=== PATIENT | male | born 1950 | race Caucasian/White ===

== ENCOUNTER 2020-03-20 21:40 | Inpatient (IN) | payer MEDICARE, BC ==
[~2020-03-20] VITALS: Ht 160 cm; Wt 66.7 kg
--- NOTE | 2020-03-20 22:30 | NUR ---
PT RESTING ON GURNEY, MONITORS IN PLACE, SIDERAIL SUP X2, DONOHUE CATHETER INTACT DRAINING WITHOUT DIFFICULTY, CALL LIGHT WITHIN REACH. DISCUSSED EMERGENGY CONTACT WITH PT, PT GAVE PERMISSION TO UPDATE HIS SON JORGE WITH ANY INFORMATION AND SON TO BE EMERGENCY CONTACT [phone]. PT STATED THAT HE DOES NOT WANT HIS EX BIANKA TO BE GIVEN ANY INFORMATION OR UPDATES RELATED TO HIM
--- NOTE | 2020-03-20 23:16 | NUR ---
ERP UPDATED TROPONIN 5.3, PT OK FOR ADMIT TRANSFER
[2020-03-20 23:30] VITALS: BP 123/80
[2020-03-20] MEDS ORDERED: NITROGLYCERIN 0.4 MG BOTTLE (25 TABS) SL PRN (23:30)
[2020-03-20] MEDS ORDERED: BISACODYL 10 MG SUPP PR PRN (23:30)
[2020-03-20] MEDS ORDERED: hydrALAzine 20 MG/ML, 1ML IVPush PRN (23:30)
[2020-03-20] MEDS ORDERED: ACETAMINOPHEN 325 MG TABLET PO PRN (23:30)
[2020-03-20] MEDS ORDERED: POLYETHYLENE GLYCOL 17 GM PACKET PO PRN (23:30)
[2020-03-20] MEDS ORDERED: SODIUM CHLORIDE 0.45% 1,000 ML IV SCH (23:30)
[2020-03-20] MEDS ORDERED: morphine SULFATE 10 MG/ML, 1ML IVPush PRN (23:30)
[2020-03-20] MEDS ORDERED: ONDANSETRON 2MG/ML, 2ML IVPush PRN (23:30)
[2020-03-20] MEDS ORDERED: HEPARIN 5,000 UNITS/ML, 1ML IV PRN (23:45)
[2020-03-20] MEDS ORDERED: HEPARIN 25,000 UNITS/250ML PMX 250 ML IV PRN (23:45)
[2020-03-20] MEDS ORDERED: HEPARIN 5,000 UNITS/ML, 1ML IV ONE (23:45)
[2020-03-21 02:44] VITALS: BP 113/73
[2020-03-21] MEDS: ASPIRIN 81 MG TABLET EC PO SCH (05:29)
[2020-03-21] MEDS ORDERED: ASPIRIN 325 MG TABLET EC PO SCH (06:00)
[2020-03-21 06:45] LABS: ALBUMIN 3.2 g/dL (3.4-5.0); ANION GAP 10 mmol/L (5-15); CALCIUM 8.5 mg/dL (8.5-10.1); CHLORIDE 117 mmol/L (98-107)
[2020-03-21 06:49] LABS: ALANINE AMINOTRANSFERASE 95 U/L (12-78); ALKALINE PHOSPHATASE 65 U/L (45-117); BILIRUBIN,TOTAL 1.7 mg/dL (0.2-1.0); CREATININE 1.44 mg/dL (0.7-1.3); TOTAL PROTEIN 6.5 g/dL (6.4-8.2)
[2020-03-21 07:02] LABS: CREATINE KINASE, TOTAL 1423 U/L (39-308)
[2020-03-21 07:22] LABS: BASOPHILS # (AUTO) 0.02 x10^3/uL (0-0.1); BASOPHILS % (AUTO) 0 % (0-1); EOSINOPHILS % (AUTO) 0 % (1-7); LYMPHOCYTES # (AUTO) 0.65 x10^3/uL (1-3.4); LYMPHOCYTES % (AUTO) 9 % (22-44); MD SCAN; MEAN CORPUSCULAR HEMOGLOBIN 34.3 pg (27.5-34.5); MEAN CORPUSCULAR HGB CONC 33.5 g/dL (33.2-36.2); MEAN CORPUSCULAR VOLUME 102.6 fL (81-97); MEAN PLATELET VOLUME 8.6 fL (7.4-10.4); MONOCYTES # (AUTO) 0.33 x10^3/uL (0.2-0.8); MONOCYTES % (AUTO) 5 % (2-9); NEUTROPHILS # (AUTO) 6.03 x10^3/uL (1.8-6.8); NEUTROPHILS % (AUTO) 86 % (42-75); PLATELET COUNT 148 x10^3/uL (130-400); RED BLOOD COUNT 3.18 x10^6/uL (4.38-5.82)
[2020-03-21] MEDS ORDERED: PANTOPRAZOLE 40 MG IV IVPush SCH (07:30)
[2020-03-21 08:33] VITALS: BP 123/76
[2020-03-21] MEDS: SENNA/DOCUSATE TABLET PO SCH (08:34)
[2020-03-21] MEDS ORDERED: D5%-0.45NACL+KCL 20MEQ 1,000 ML IV SCH (09:00)
[2020-03-21] MEDS ORDERED: CHLORDIAZEPOXIDE 25 MG CAPSULE PO PRN (11:30)
[2020-03-21] MEDS ORDERED: LORazepam 1MG TABLET PO PRN ×3 (11:30)
[2020-03-21] MEDS ORDERED: LORazepam 2 MG/ML, 1ML IV PRN ×3 (11:30)
[2020-03-21] MEDS ORDERED: LORazepam 0.5MG TABLET PO PRN (11:30)
[2020-03-21] MEDS ORDERED: THIAMINE 100 MG in SODIUM CHLORIDE 0.9% 50 ML IV SCH (12:00)
[2020-03-21] MEDS: D5%-0.45NACL+KCL 20MEQ 1,000 ML IV SCH ×2 (12:13→23:22)
[2020-03-21 12:35] LABS: MICROSCOPIC AUTO
[2020-03-21 12:36] LABS: CULTURE INDICATED? YES
[2020-03-21 12:47] LABS: AMPHETAMINE SCREEN, URINE Negative (Negative); BARBITURATE SCREEN, URINE Negative (Negative); BENZODIAZEPINE SCREEN, URINE Negative (Negative); CANNABINOID SCREEN, URINE Negative (Negative); COCAINE SCREEN, URINE Negative (Negative); METHADONE SCREEN, URINE Negative (Negative); OPIATE SCREEN, URINE Negative (Negative)
[2020-03-21] MEDS ORDERED: CEFTRIAXONE PMX 1GM/50ML 50 ML IV SCH (13:00)
[2020-03-21 16:30] VITALS: BP 117/71
[2020-03-21] MEDS: LORazepam 2 MG/ML, 1ML IV PRN ×3 (18:41→23:30)
[2020-03-21 19:30] VITALS: BP 115/84
[2020-03-21] MEDS: ATORVASTATIN 40 MG TABLET PO SCH (21:07)
[2020-03-22 00:33] LABS: CLOSTRIDIUM DIFFICILE ANTIGEN NEGATIVE; CLOSTRIDIUM DIFFICILE TOXIN NEGATIVE (Negative)
[2020-03-22 01:41] VITALS: BP 115/75
[2020-03-22] MEDS: LORazepam 2 MG/ML, 1ML IV PRN ×2 (02:17→12:55)
[2020-03-22] MEDS ORDERED: PANTOPRAZOLE 40MG TABLET ONE (03:21)
[2020-03-22] MEDS: ASPIRIN 81 MG TABLET EC PO SCH (03:22)
[2020-03-22] MEDS: D5%-0.45NACL+KCL 20MEQ 1,000 ML IV SCH (04:51)
[2020-03-22 05:34] LABS: BASOPHILS # (AUTO) 0.03 x10^3/uL (0-0.1); BASOPHILS % (AUTO) 0 % (0-1); EOSINOPHILS # (AUTO) 0.05 x10^3/uL (0-0.4); EOSINOPHILS % (AUTO) 1 % (1-7); LYMPHOCYTES # (AUTO) 0.74 x10^3/uL (1-3.4); LYMPHOCYTES % (AUTO) 12 % (22-44); MD NO; MEAN CORPUSCULAR HEMOGLOBIN 34.5 pg (27.5-34.5); MEAN CORPUSCULAR HGB CONC 33.5 g/dL (33.2-36.2); MEAN PLATELET VOLUME 8.8 fL (7.4-10.4); MONOCYTES # (AUTO) 0.38 x10^3/uL (0.2-0.8); MONOCYTES % (AUTO) 6 % (2-9); NEUTROPHILS % (AUTO) 80 % (42-75); PLATELET COUNT 120 x10^3/uL (130-400); RED BLOOD COUNT 3.25 x10^6/uL (4.38-5.82)
[2020-03-22 05:42] LABS: ALANINE AMINOTRANSFERASE 73 U/L (12-78); ALBUMIN 2.7 g/dL (3.4-5.0); ANION GAP 8 mmol/L (5-15); CALCIUM 7.8 mg/dL (8.5-10.1); CHLORIDE 119 mmol/L (98-107); CREATININE 0.99 mg/dL (0.7-1.3)
[2020-03-22 05:46] LABS: ALKALINE PHOSPHATASE 60 U/L (45-117); BILIRUBIN,TOTAL 1.6 mg/dL (0.2-1.0); TOTAL PROTEIN 5.9 g/dL (6.4-8.2)
[2020-03-22] MEDS ORDERED: PANTOPRAZOLE 40MG TABLET PO SCH (06:00)
[2020-03-22 06:03] LABS: CREATINE KINASE, TOTAL 1237 U/L (39-308)
[2020-03-22 07:10] VITALS: BP 117/76
[2020-03-22] MEDS: SENNA/DOCUSATE TABLET PO SCH (07:25)
[2020-03-22] MEDS ORDERED: CEFDINIR 300 MG CAPSULE PO SCH (09:00)
[2020-03-22] MEDS ORDERED: D5%-0.45NACL+KCL 20MEQ 1,000 ML IV SCH (09:00)
[2020-03-22] MEDS: HEPARIN 5,000 UNITS/ML, 1ML SQ SCH ×2 (09:47→17:33)
[2020-03-22] MEDS: LACTATED RINGERS 1,000 ML IV SCH ×2 (09:47→15:40)
[2020-03-22] MEDS: CHLORDIAZEPOXIDE 25 MG CAPSULE PO SCH ×3 (09:47→21:00)
[2020-03-22] MEDS ORDERED: THIAMINE 200 MG in SODIUM CHLORIDE 0.9% 50 ML IV SCH (12:00)
[2020-03-22 13:20] VITALS: BP 125/82
[2020-03-22 19:28] VITALS: BP 139/84
[2020-03-22] MEDS: ATORVASTATIN 40 MG TABLET PO SCH (21:00)
[2020-03-22] MEDS: CEFTRIAXONE PMX 1GM/50ML 50 ML IV SCH (21:14)
[2020-03-23] MEDS: LACTATED RINGERS 1,000 ML IV SCH ×2 (01:17→08:46)
[2020-03-23] MEDS: HEPARIN 5,000 UNITS/ML, 1ML SQ SCH ×3 (01:18→18:43)
[2020-03-23 01:39] VITALS: BP 136/72
[2020-03-23 05:46] LABS: BASOPHILS # (AUTO) 0.03 x10^3/uL (0-0.1); BASOPHILS % (AUTO) 1 % (0-1); CHLORIDE 117 mmol/L (98-107); EOSINOPHILS # (AUTO) 0.11 x10^3/uL (0-0.4); EOSINOPHILS % (AUTO) 3 % (1-7); LYMPHOCYTES # (AUTO) 0.67 x10^3/uL (1-3.4); LYMPHOCYTES % (AUTO) 15 % (22-44); MD NO; MEAN CORPUSCULAR HEMOGLOBIN 35.4 pg (27.5-34.5); MEAN CORPUSCULAR HGB CONC 34.4 g/dL (33.2-36.2); MEAN CORPUSCULAR VOLUME 102.9 fL (81-97); MEAN PLATELET VOLUME 8.7 fL (7.4-10.4); MONOCYTES # (AUTO) 0.36 x10^3/uL (0.2-0.8); MONOCYTES % (AUTO) 8 % (2-9); NEUTROPHILS # (AUTO) 3.35 x10^3/uL (1.8-6.8); NEUTROPHILS % (AUTO) 74 % (42-75); PLATELET COUNT 113 x10^3/uL (130-400); RED BLOOD COUNT 2.86 x10^6/uL (4.38-5.82); RED CELL DISTRIBUTION WIDTH 14.5 % (9.4-14.8)
[2020-03-23 05:55] LABS: ALANINE AMINOTRANSFERASE 64 U/L (12-78); ALBUMIN 2.6 g/dL (3.4-5.0); ALKALINE PHOSPHATASE 63 U/L (45-117); ANION GAP 8 mmol/L (5-15); BILIRUBIN,TOTAL 1.1 mg/dL (0.2-1.0); CALCIUM 8.1 mg/dL (8.5-10.1); CREATINE KINASE, TOTAL 603 U/L (39-308); CREATININE 0.76 mg/dL (0.7-1.3); TOTAL PROTEIN 5.8 g/dL (6.4-8.2)
[2020-03-23] MEDS: ASPIRIN 81 MG TABLET EC PO SCH (06:00)
[2020-03-23] MEDS: PANTOPRAZOLE 40 MG IV IV SCH (06:05)
[2020-03-23] MEDS ORDERED: MAGNESIUM SULFATE PMX 4GM/100M 100 ML IVPB ONE (06:30)
[2020-03-23 08:30] VITALS: BP 154/94
[2020-03-23] MEDS: MULTIVITAMINS/MINERALS TABLET PO SCH (09:00)
[2020-03-23] MEDS: SENNA/DOCUSATE TABLET PO SCH (09:00)
[2020-03-23] MEDS: FOLIC ACID 1 MG TABLET PO SCH (09:00)
[2020-03-23] MEDS ORDERED: POTASSIUM CHLORIDE 10 MEQ in D5%-0.45% NACL 1,000 ML IV SCH (09:15)
[2020-03-23] MEDS: POTASSIUM CHLORIDE 10 MEQ in D5%-0.45% NACL 1,000 ML IV SCH (10:06)
[2020-03-23] MEDS: CHLORDIAZEPOXIDE 25 MG CAPSULE PO SCH (12:43)
[2020-03-23] MEDS: METOPROLOL TARTRATE 25 MG TAB PO SCH ×2 (12:52→21:17)
[2020-03-23] MEDS: THIAMINE 100 MG in SODIUM CHLORIDE 0.9% 50 ML IV SCH (13:20)
[2020-03-23 14:10] VITALS: BP 146/82
[2020-03-23 20:15] VITALS: BP 144/89
[2020-03-23] MEDS: ATORVASTATIN 40 MG TABLET PO SCH (21:17)
[2020-03-23] MEDS: CEFTRIAXONE PMX 1GM/50ML 50 ML IV SCH (21:55)
[2020-03-24 01:31] VITALS: BP 144/89
[2020-03-24] MEDS: HEPARIN 5,000 UNITS/ML, 1ML SQ SCH ×3 (01:59→17:32)
[2020-03-24 05:49] LABS: BASOPHILS # (AUTO) 0.01 x10^3/uL (0-0.1); BASOPHILS % (AUTO) 0 % (0-1); EOSINOPHILS # (AUTO) 0.15 x10^3/uL (0-0.4); EOSINOPHILS % (AUTO) 3 % (1-7); LYMPHOCYTES # (AUTO) 0.75 x10^3/uL (1-3.4); LYMPHOCYTES % (AUTO) 15 % (22-44); MD NO; MEAN CORPUSCULAR HEMOGLOBIN 34.7 pg (27.5-34.5); MEAN CORPUSCULAR HGB CONC 33.7 g/dL (33.2-36.2); MEAN PLATELET VOLUME 9.1 fL (7.4-10.4); MONOCYTES # (AUTO) 0.49 x10^3/uL (0.2-0.8); MONOCYTES % (AUTO) 10 % (2-9); NEUTROPHILS # (AUTO) 3.61 x10^3/uL (1.8-6.8); NEUTROPHILS % (AUTO) 72 % (42-75); PLATELET COUNT 120 x10^3/uL (130-400); RED BLOOD COUNT 2.85 x10^6/uL (4.38-5.82); RED CELL DISTRIBUTION WIDTH 14.7 % (9.4-14.8)
[2020-03-24 05:53] LABS: ALBUMIN 2.4 g/dL (3.4-5.0); ANION GAP 9 mmol/L (5-15); CALCIUM 8.5 mg/dL (8.5-10.1); CHLORIDE 114 mmol/L (98-107)
[2020-03-24] MEDS: ASPIRIN 81 MG TABLET EC PO SCH (05:56)
[2020-03-24] MEDS: PANTOPRAZOLE 40 MG IV IV SCH (05:56)
[2020-03-24 05:57] LABS: ALANINE AMINOTRANSFERASE 55 U/L (12-78); ALKALINE PHOSPHATASE 65 U/L (45-117); BILIRUBIN,TOTAL 0.9 mg/dL (0.2-1.0); CREATININE 0.82 mg/dL (0.7-1.3); TOTAL PROTEIN 5.8 g/dL (6.4-8.2)
[2020-03-24] MEDS: METOPROLOL TARTRATE 25 MG TAB PO SCH ×2 (06:10→17:29)
[2020-03-24] MEDS ORDERED: MAGNESIUM SULFATE PMX 2GM/50ML 50 ML IV ONE (07:00)
[2020-03-24] MEDS: SENNA/DOCUSATE TABLET PO SCH (07:20)
[2020-03-24 07:50] VITALS: BP 156/94
[2020-03-24] MEDS: MULTIVITAMINS/MINERALS TABLET PO SCH (09:00)
[2020-03-24] MEDS: CEFDINIR 300 MG CAPSULE PO SCH ×2 (09:00→20:28)
[2020-03-24] MEDS: FOLIC ACID 1 MG TABLET PO SCH (09:00)
[2020-03-24] MEDS ORDERED: POTASSIUM CHLORIDE 20 MEQ TAB.ER.PRT PO SCH (09:00)
[2020-03-24] MEDS ORDERED: POTASSIUM CHLORIDE 20 MEQ in SODIUM CHLORIDE 0.9% 250 ML IV ONE (10:15)
[2020-03-24 13:40] VITALS: BP 131/82
[2020-03-24] MEDS: THIAMINE 100 MG in SODIUM CHLORIDE 0.9% 50 ML IV SCH (15:14)
[2020-03-24] MEDS ORDERED: PHARMACY INSTRUCTION MC PRN (15:30)
[2020-03-24] MEDS ORDERED: INSTRUCTION SEE COMMENTS XX PRN (15:30)
[2020-03-24] MEDS: IBUPROFEN 600 MG TABLET PO PRN (17:29)
[2020-03-24] MEDS: QUETIAPINE 25MG TABLET PO PRN (17:47)
[2020-03-24] MEDS: POTASSIUM CHLORIDE 10 MEQ in D5%-0.45% NACL 1,000 ML IV SCH (20:27)
[2020-03-24] MEDS: ATORVASTATIN 40 MG TABLET PO SCH (20:27)
[2020-03-24] MEDS: MELATONIN 3 MG TABLET PO SCH (20:28)
[2020-03-24 21:10] VITALS: BP 141/82
[2020-03-25] MEDS: HEPARIN 5,000 UNITS/ML, 1ML SQ SCH ×3 (00:43→18:19)
[2020-03-25] MEDS ORDERED: OMEP40CA42 PO (01:06)
[2020-03-25] MEDS ORDERED: LOSA50TA14 PO (01:06)
[2020-03-25] MEDS: IBUPROFEN 600 MG TABLET PO PRN ×2 (02:31→15:16)
[2020-03-25] MEDS: POTASSIUM CHLORIDE 10 MEQ in D5%-0.45% NACL 1,000 ML IV SCH ×2 (04:42→15:19)
[2020-03-25 05:13] VITALS: BP 132/84
[2020-03-25] MEDS: ASPIRIN 81 MG TABLET EC PO SCH (05:14)
[2020-03-25] MEDS: METOPROLOL TARTRATE 25 MG TAB PO SCH ×2 (05:14→18:19)
[2020-03-25 05:28] LABS: BASOPHILS % (AUTO) 0 % (0-1); EOSINOPHILS # (AUTO) 0.27 x10^3/uL (0-0.4); EOSINOPHILS % (AUTO) 6 % (1-7); LYMPHOCYTES # (AUTO) 0.82 x10^3/uL (1-3.4); LYMPHOCYTES % (AUTO) 18 % (22-44); MD NO; MEAN CORPUSCULAR HEMOGLOBIN 35.2 pg (27.5-34.5); MEAN CORPUSCULAR HGB CONC 34.2 g/dL (33.2-36.2); MEAN PLATELET VOLUME 9.2 fL (7.4-10.4); MONOCYTES # (AUTO) 0.52 x10^3/uL (0.2-0.8); MONOCYTES % (AUTO) 12 % (2-9); NEUTROPHILS # (AUTO) 2.92 x10^3/uL (1.8-6.8); NEUTROPHILS % (AUTO) 64 % (42-75); PLATELET COUNT 138 x10^3/uL (130-400); RED BLOOD COUNT 2.58 x10^6/uL (4.38-5.82); RED CELL DISTRIBUTION WIDTH 15.1 % (9.4-14.8)
[2020-03-25 05:30] LABS: ALANINE AMINOTRANSFERASE 44 U/L (12-78); ALBUMIN 2.2 g/dL (3.4-5.0); ANION GAP 5 mmol/L (5-15); CALCIUM 7.9 mg/dL (8.5-10.1); CHLORIDE 118 mmol/L (98-107)
[2020-03-25 05:33] LABS: ALKALINE PHOSPHATASE 63 U/L (45-117); BILIRUBIN,TOTAL 0.6 mg/dL (0.2-1.0); CREATININE 0.79 mg/dL (0.7-1.3); TOTAL PROTEIN 5.2 g/dL (6.4-8.2)
[2020-03-25 07:49] VITALS: BP 145/89
[2020-03-25] MEDS: FOLIC ACID 1 MG TABLET PO SCH (09:20)
[2020-03-25] MEDS: MULTIVITAMINS/MINERALS TABLET PO SCH (09:22)
[2020-03-25] MEDS: CEFDINIR 300 MG CAPSULE PO SCH ×2 (09:25→20:58)
[2020-03-25] MEDS: SENNA/DOCUSATE TABLET PO SCH (09:25)
[2020-03-25] MEDS ORDERED: POTASSIUM CHLORIDE 40 MEQ in SODIUM CHLORIDE 0.9% 500 ML IV ONE (09:30)
[2020-03-25] MEDS ORDERED: MAGNESIUM SULFATE PMX 2GM/50ML 50 ML IV ONE (11:00)
[2020-03-25] MEDS ORDERED: OXYcodone/APAP 5/325MG TABLET PO PRN (11:00)
[2020-03-25] MEDS: CYCLOBENZAPRINE 10 MG TABLET PO PRN (11:31)
[2020-03-25 13:30] VITALS: BP 145/85
[2020-03-25] MEDS: THIAMINE 100 MG in SODIUM CHLORIDE 0.9% 50 ML IV SCH (13:56)
[2020-03-25 18:17] VITALS: BP 128/84
[2020-03-25 19:42] VITALS: BP 126/83
[2020-03-25] MEDS: ATORVASTATIN 40 MG TABLET PO SCH (20:58)
[2020-03-25] MEDS: MELATONIN 3 MG TABLET PO SCH (20:58)
[2020-03-26] MEDS: POTASSIUM CHLORIDE 10 MEQ in D5%-0.45% NACL 1,000 ML IV SCH (01:48)
[2020-03-26] MEDS: HEPARIN 5,000 UNITS/ML, 1ML SQ SCH ×3 (01:49→18:25)
[2020-03-26 05:08] VITALS: BP 144/88
[2020-03-26] MEDS: METOPROLOL TARTRATE 25 MG TAB PO SCH ×2 (05:10→18:25)
[2020-03-26] MEDS: ASPIRIN 81 MG TABLET EC PO SCH (05:10)
[2020-03-26] MEDS: CYCLOBENZAPRINE 10 MG TABLET PO PRN (05:11)
[2020-03-26 05:25] LABS: ALBUMIN 2.4 g/dL (3.4-5.0); CHLORIDE 116 mmol/L (98-107)
[2020-03-26 05:35] LABS: ALANINE AMINOTRANSFERASE 42 U/L (12-78); ALKALINE PHOSPHATASE 69 U/L (45-117); ANION GAP 5 mmol/L (5-15); BILIRUBIN,TOTAL 0.6 mg/dL (0.2-1.0); CALCIUM 8.5 mg/dL (8.5-10.1); CHOL/HDL RATIO 1.9; CHOLESTEROL, TOTAL 92 mg/dL (140-239); CREATININE 0.83 mg/dL (0.7-1.3); HDL CHOL % 52 % (26-37); HDL CHOLESTEROL (DIRECT) 48 mg/dL (40-60); LDL CHOLESTEROL,CALCULATED 31 mg/dL (54-169); LDL/HDL RATIO 0.6 (0.5-3.0); TOTAL PROTEIN 5.8 g/dL (6.4-8.2); TRIGLYCERIDES 64 mg/dL (50-200); TROPONIN I 0.098 ng/mL (0.000-0.045); VLDL CHOLESTEROL 13 mg/dL (0-25)
[2020-03-26 05:42] LABS: BASOPHILS # (AUTO) 0.03 x10^3/uL (0-0.1); BASOPHILS % (AUTO) 1 % (0-1); EOSINOPHILS # (AUTO) 0.31 x10^3/uL (0-0.4); EOSINOPHILS % (AUTO) 6 % (1-7); LYMPHOCYTES # (AUTO) 0.86 x10^3/uL (1-3.4); LYMPHOCYTES % (AUTO) 16 % (22-44); MD NO; MEAN CORPUSCULAR HEMOGLOBIN 34.8 pg (27.5-34.5); MEAN CORPUSCULAR HGB CONC 33.2 g/dL (33.2-36.2); MEAN CORPUSCULAR VOLUME 104.8 fL (81-97); MEAN PLATELET VOLUME 9.4 fL (7.4-10.4); MONOCYTES # (AUTO) 0.69 x10^3/uL (0.2-0.8); MONOCYTES % (AUTO) 13 % (2-9); NEUTROPHILS % (AUTO) 66 % (42-75); PLATELET COUNT 183 x10^3/uL (130-400); RED BLOOD COUNT 2.66 x10^6/uL (4.38-5.82); RED CELL DISTRIBUTION WIDTH 15.2 % (9.4-14.8)
[2020-03-26 07:29] VITALS: BP 131/75
[2020-03-26] MEDS ORDERED: POTASSIUM CHLORIDE 10 MEQ in D5%-0.45% NACL 1,000 ML IV SCH ×2 (09:15→14:00)
[2020-03-26] MEDS: FOLIC ACID 1 MG TABLET PO SCH (09:33)
[2020-03-26] MEDS: THIAMINE 100MG TABLET PO SCH (09:35)
[2020-03-26] MEDS: CEFDINIR 300 MG CAPSULE PO SCH ×2 (09:36→21:10)
[2020-03-26] MEDS: MULTIVITAMINS/MINERALS TABLET PO SCH (09:37)
[2020-03-26] MEDS: SENNA/DOCUSATE TABLET PO SCH (09:37)
[2020-03-26] MEDS: D5%-0.45% NACL+KCL 10MEQ 1,000 ML IV SCH (11:44)
[2020-03-26 12:23] VITALS: BP 132/73
--- NOTE | 2020-03-26 13:18 | NUR ---
Rec d/c to previous living situation. Addendum: 03/26/20 at 1319 by Neda PAUL Amended: Links added.
[2020-03-26] MEDS: IBUPROFEN 600 MG TABLET PO PRN (15:43)
[2020-03-26 18:23] VITALS: BP 136/79
[2020-03-26] MEDS: MELATONIN 3 MG TABLET PO SCH (21:10)
[2020-03-26] MEDS: ATORVASTATIN 40 MG TABLET PO SCH (21:10)
[2020-03-26 21:19] VITALS: BP 142/80
[2020-03-27] MEDS: QUETIAPINE 25MG TABLET PO PRN (00:40)
[2020-03-27] MEDS: HEPARIN 5,000 UNITS/ML, 1ML SQ SCH ×3 (02:00→17:33)
[2020-03-27] MEDS ORDERED: HALOPERIDOL 5 MG/ML IV PRN (03:30)
[2020-03-27 06:07] VITALS: BP 115/71
[2020-03-27] MEDS: ASPIRIN 81 MG TABLET EC PO SCH (06:09)
[2020-03-27] MEDS: METOPROLOL TARTRATE 25 MG TAB PO SCH ×2 (06:09→17:34)
[2020-03-27 07:04] VITALS: BP 147/87
[2020-03-27] MEDS ORDERED: REGADENOSON 0.4 MG/5 ML SYRINGE ONE (08:42)
[2020-03-27] MEDS: SENNA/DOCUSATE TABLET PO SCH (09:00)
[2020-03-27] MEDS: MULTIVITAMINS/MINERALS TABLET PO SCH (10:33)
[2020-03-27] MEDS: FOLIC ACID 1 MG TABLET PO SCH (10:33)
[2020-03-27] MEDS: THIAMINE 100MG TABLET PO SCH (10:33)
[2020-03-27] MEDS: D5%-0.45% NACL+KCL 10MEQ 1,000 ML IV SCH (11:25)
[2020-03-27] MEDS ORDERED: TRAZODONE 50MG TABLET PO PRN (12:00)
[2020-03-27] MEDS ORDERED: HALOPERIDOL 1 MG TABLET PO PRN (12:00)
[2020-03-27] MEDS ORDERED: HALOPERIDOL 0.5 MG TABLET PO PRN (12:30)
[2020-03-27 14:10] VITALS: BP 135/81
[2020-03-27] MEDS ORDERED: MAALOX/HYOSCYAMINE/LIDOCAINE 45 ML BTL PO PRN (17:00)
[2020-03-27 19:54] VITALS: BP 151/82
[2020-03-27] MEDS: ATORVASTATIN 40 MG TABLET PO SCH (20:01)
[2020-03-27] MEDS: MELATONIN 3 MG TABLET PO SCH (20:01)
[2020-03-28] MEDS: HEPARIN 5,000 UNITS/ML, 1ML SQ SCH ×2 (02:20→11:53)
[2020-03-28] MEDS: ASPIRIN 81 MG TABLET EC PO SCH (06:05)
[2020-03-28] MEDS: METOPROLOL TARTRATE 25 MG TAB PO SCH (06:05)
[2020-03-28 06:51] VITALS: BP 122/72
[2020-03-28 07:50] LABS: BASOPHILS # (AUTO) 0.01 x10^3/uL (0-0.1); BASOPHILS % (AUTO) 0 % (0-1); EOSINOPHILS # (AUTO) 0.19 x10^3/uL (0-0.4); EOSINOPHILS % (AUTO) 4 % (1-7); LYMPHOCYTES # (AUTO) 0.94 x10^3/uL (1-3.4); LYMPHOCYTES % (AUTO) 21 % (22-44); MD NO; MEAN CORPUSCULAR HEMOGLOBIN 34.6 pg (27.5-34.5); MEAN CORPUSCULAR HGB CONC 33.1 g/dL (33.2-36.2); MEAN CORPUSCULAR VOLUME 104.7 fL (81-97); MEAN PLATELET VOLUME 8.7 fL (7.4-10.4); MONOCYTES # (AUTO) 0.51 x10^3/uL (0.2-0.8); MONOCYTES % (AUTO) 11 % (2-9); NEUTROPHILS # (AUTO) 2.85 x10^3/uL (1.8-6.8); NEUTROPHILS % (AUTO) 63 % (42-75); PLATELET COUNT 266 x10^3/uL (130-400); RED BLOOD COUNT 2.96 x10^6/uL (4.38-5.82); RED CELL DISTRIBUTION WIDTH 14.7 % (9.4-14.8)
[2020-03-28 08:00] LABS: ALANINE AMINOTRANSFERASE 44 U/L (12-78); ALBUMIN 2.7 g/dL (3.4-5.0); ANION GAP 5 mmol/L (5-15); CALCIUM 8.6 mg/dL (8.5-10.1); CHLORIDE 114 mmol/L (98-107); CREATININE 0.87 mg/dL (0.7-1.3)
[2020-03-28 08:03] LABS: ALKALINE PHOSPHATASE 81 U/L (45-117); BILIRUBIN,TOTAL 0.5 mg/dL (0.2-1.0); TOTAL PROTEIN 6.4 g/dL (6.4-8.2)
[2020-03-28] MEDS: MULTIVITAMINS/MINERALS TABLET PO SCH (08:31)
[2020-03-28] MEDS: THIAMINE 100MG TABLET PO SCH (08:31)
[2020-03-28] MEDS: FOLIC ACID 1 MG TABLET PO SCH (08:31)
[2020-03-28] MEDS: SENNA/DOCUSATE TABLET PO SCH (08:32)
[2020-03-28 12:42] VITALS: BP 130/71
[2020-03-28] MEDS ORDERED: OMEP-110 PO (12:42)
[2020-03-28] MEDS ORDERED: ASPI81TA45 PO (12:42)
[2020-03-28] MEDS ORDERED: METO25TA35 PO (12:42)
[2020-03-28] MEDS ORDERED: THIA100T67 PO (12:42)
[2020-03-28] MEDS ORDERED: IBUP-1222 PO (12:42)
[2020-03-28] MEDS ORDERED: FOLI-17 PO (12:42)
== END 2020-03-28 15:53 | disposition home health service (06) | DRG 280 ==
LOC: ED 22:35 → EDIP 23:22 → 5SO 23:35
PROVIDERS: ADMIT Family Medicine; ATTEND Internal Medicine
DX: I21.4 Non-ST elevation (NSTEMI) myocardial infarction (principal); N17.0 Acute kidney failure with tubular necrosis; G93.41 Metabolic encephalopathy; E87.0 Hyperosmolality and hypernatremia; E87.2 Acidosis; F10.239 Alcohol dependence with withdrawal, unspecified; M62.82 Rhabdomyolysis; N39.0 Urinary tract infection, site not specified; E51.2 Wernicke's encephalopathy; D53.9 Nutritional anemia, unspecified; E83.42 Hypomagnesemia; E86.0 Dehydration; I25.2 Old myocardial infarction; Z87.891 Personal history of nicotine dependence; M10.9 Gout, unspecified; I10 Essential (primary) hypertension; Z82.3 Family history of stroke; Z81.8 Family history of other mental and behavioral disorders; R41.0 Disorientation, unspecified; S80.01XA Contusion of right knee, initial encounter; S80.02XA Contusion of left knee, initial encounter; Z85.038 Personal history of other malignant neoplasm of large intestine; S50.01XA Contusion of right elbow, initial encounter; S50.02XA Contusion of left elbow, initial encounter; Y93.89 Activity, other specified; Y99.8 Other external cause status; S02.2XXA Fracture of nasal bones, initial encounter for closed fracture; S09.90XA Unspecified injury of head, initial encounter; M13.852 Other specified arthritis, left hip; M13.851 Other specified arthritis, right hip; R00.0 Tachycardia, unspecified; K76.0 Fatty (change of) liver, not elsewhere classified; R13.10 Dysphagia, unspecified; V89.2XXA Person injured in unspecified motor-vehicle accident, traffic, initial encounter; Y92.410 Unspecified street and highway as the place of occurrence of the external cause; Y90.9 Presence of alcohol in blood, level not specified
CPT/HCPCS: 36415; 36600; 70486; 70551; 76700; 78452; 80053; 80061; 80307; 81001; 82550; 82607; 82803; 83735; 84100; 84443; 84484; 85025; 85520; 87086; 87324; 93005; 93017; 93306; 93356; 93880; 95812; 99285; G0378; J0696; J1644; J2785; J3411; J3480; A9502; C9113; J1630; J2060; J3475; J7040; J7050; J7120